=== PATIENT | female | born 1965 | race Caucasian/White ===

== ENCOUNTER 2019-03-23 09:36 | Emergency (ER) | payer OTHER, SELFPAY ==
[2019-03-23] VITALS (8 sets, daily range): BP systolic 141–174; BP diastolic 68–90; PULSE 61–81; RESP 15–22; TEMP 37.2; O2SAT 100
--- NOTE | ~2019-03-23 | XR_ITS ---
EXAMINATION: XR chest 2V EXAM DATE: 03/23/2019 10:20 INDICATION: Heart murmur. Mid chest pain. TECHNIQUE: Frontal and lateral projections of the chest obtained and reviewed. There is no prior natividad dy for comparison. FINDINGS: The lungs are clear. There are no pleural effusions. The cardiomediastinal silhouette is within normal limits. There is no pneumothorax suspected. The bones and soft tissues are unremarkab le. IMPRESSION: Unremarkable chest x-ray exam. Reviewed, dictated and finalized at location A. [facility] [employer]
--- NOTE | 2019-03-23 09:47 | ECG_ITS ---
Measurements Intervals [place] Rate: 62 P: 32 AR: 149 QRS: 47 QRSD: 90 T: 28 QT: 399 QTc: 408 Interpretive Statements SINUS RHYTHM VOLTAGE CRITERIA FOR LVH BASELINE ARTIFACT- I, II, III BORDERLINE ECG Electronically Signed On 03-23-2019 10:05:51 [employer] by Lamonte Solano D.O.
[2019-03-23 10:06] LABS: Basophils Absolute Auto 0.1 K/mm3 (0.0-0.1); Basophils Percent Auto 0.7 % (0.2-1.2); Eosinophils Absolute Auto 0.2 K/mm3 (0-0.3); Eosinophils Percent Auto 2.4 % (0-4.4); Hematocrit 42.8 % (37.0-47.0); Hemoglobin 14.1 g/dL (12.0-15.0); Immature Granulocyte Absolute 0.02 K/mm3 (0.00-0.031); Immature Granulocyte Percent A 0.3 % (0-0.5); Lymphocytes Absolute Auto 2.18 K/mm3 (0.9-3.2); Lymphocytes Percent Auto 31.3 % (18.3-44.2); Mean Corpuscular HGB Conc 32.9 g/dl (32-36); Mean Corpuscular Hemoglobin 28.5 pg (26-34); Mean Corpuscular Volume 86.6 fl (80-100); Mean Platelet Volume 11.1 fl (7.4-10.4); Monocytes Absolute Auto 0.6 K/mm3 (0.1-0.6); Monocytes Percent Auto 7.9 % (2.6-8.5); Neutrophils Percent Auto 57.4 % (45.5-73.1); Platelet Count Result 268 k/mm3 (150-375); Red Blood Count 4.94 M/mm3 (4.2-5.4); Red Cell Distribution Width 12.5 % (11.5-14.5)
[2019-03-23 10:17] LABS: Blood Urea Nitrogen 19 mg/dL (7-17); Calcium 9.8 mg/dL (8.4-10.2); Carbon Dioxide 26 mmol/L (22-30); Chloride 102 mmol/L (98-107); Estimated CRCL calculation 58 ml/min; Estimated Glomerular Filt Rate > 60; Glucose 100 mg/dL (65-105); Potassium 4.2 mmol/L (3.4-5.0); Sodium 138 mmol/L (137-145)
[2019-03-23 10:19] LABS: INR 0.9; Prothrombin Time 11.6 Seconds (11.1-14.7)
[2019-03-23 10:20] LABS: Partial Thromboplastin Time 28.5 SECONDS (22.3-36.8)
[2019-03-23 10:29] LABS: Troponin I < 0.012 ng/mL (0.000-0.034)
--- NOTE | 2019-03-23 12:12 | ED.CHESTPAIN ---
HPI - Chest Pain General Chief Complaint: Chest Pain Stated Complaint: CHEST PAIN Time Seen by Provider: 03/23/19 12:06 Source: patient and RN notes reviewed Mode of arrival: ambulatory Limitations: no limitations History of Present Illness HPI narrative: Pt is a 54 y/o female presenting to the ED c/o CP. Pt reports she started experiencing CP at this morning while sitting down at work earlier today. Pt states the pain remained constant for about 30 minutes but has been intermittent since. Pt notes she has never experienced this pain previously. Pt also reports lightheadedness, and states she took her BP and found it to be high. Pt notes she is under constant mental stress, and pt's at bedside reports the pt is currently under moderate to high stress right now. 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 Pt states she is not a smoker and occasionally drinks alcohol. Pertinent past history: other (Rowena's disease) Onset (ago): unknown (Earlier today) Timing of current episode: episodic Onset: during rest Associated symptoms: other (Lightheaded) Related Data Home Medications Medication Instructions Recorded Confirmed esomeprazole magnesium 40 mg 40 mg PO DAILY 02/14/19 02/14/19 capsule,delayed release finasteride 1 mg tablet 1 mg PO DAILY 02/14/19 02/14/19 levothyroxine 125 mcg tablet 125 mcg PO DAILY 02/14/19 02/14/19 Allergies Allergy/AdvReac Type Severity Reaction Status Date / Time Sulfa (Sulfonamide Allergy Severe lethargic Verified 02/14/19 14:19 Antibiotics) Review of Systems Review of Systems: All systems reviewed & are unremarkable except as noted in HPI and below Cardiovascular: Cardiovascular: Reports chest pain Neurologic: Reports other (Lightheadedness) [facility] Past Medical History Medical History Anxiety Rowena's disease Hypertension Nonrheumatic aortic (valve) stenosis with insufficiency Tremor Surgical History Surgical History H/O: hysterectomy Family History Family History Father Hypertension Mother Breast cancer Hyperlipidemia due to dietary fat intake Hypothyroidism, unspecified Social History Social History Smoking status: Never smoker Alcohol intake: current Exam Narrative: Exam Narrative: General appearance: Well-developed, well-nourished, family at the bedside Skin: Normal color Head: Normocephalic, nontraumatic Eyes: Clear conjunctiva ENT: Oropharynx normal, ears normal, nose normal Neck: Supple, nontender Chest and respiratory: Airway patent, no respiratory distress, no accessory muscle use Heart: Regular rate/rhythm Abdomen: Soft, nontender, no organomegaly, quiet bowel sounds Vascular: Normal peripheral pulses, normal capillary refill. 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
== END 2019-03-23 13:25 | disposition home or self-care (01) ==
PROVIDERS: Emergency Medicine; Emergency Provider Emergency Medicine; PCP Internal Medicine
DX: R07.9 Chest pain, unspecified (principal); E06.3 Autoimmune thyroiditis; I10 Essential (primary) hypertension; I35.2 Nonrheumatic aortic (valve) stenosis with insufficiency; R94.31 Abnormal electrocardiogram [ECG] [EKG]
CPT/HCPCS: 36415; 71046; 80048; 84484; 85025; 85610; 85730; 93005; 99284

== ENCOUNTER 2024-04-17 08:13 | Outpatient (CLI) | payer OTHER, SELFPAY | END 2024-04-17 08:14 | disposition home or self-care (01) | LOC: GOSHIMG 08:14 | PROVIDERS: Visit Provider Clinical Nurse Specialist | DX: E04.2 Nontoxic multinodular goiter (principal); E06.3 Autoimmune thyroiditis | CPT/HCPCS: 76536 ==